=== PATIENT | male | born 2000 | race Caucasian/White ===

== ENCOUNTER 2018-06-22 13:16 | Outpatient (CLI) | payer OTHER ==
--- NOTE | 2018-06-22 17:11 | MRI ---
RIGHT WRIST MRI WITHOUT IV CONTRAST: History: 17-year-old male with history of traumatic tear of the triangular fibrocartilage S63.591A. Medial clarissa ed pain of wrist for one year, increasing with flexion. FINDINGS: Multiplanar, multisequence MRI examination of the right wrist was performed. There is no evidence for abnormal marrow signal. The triangular fibrocartilage complex appears intact. Scapholunate ligament region appears unremarkable. There is a slightly prominent pisiform recess noted just cranial to the pisiform bone. Visualized tendons appear unremarkable. IMPRESSION: Intact appearing triangular fibrocartilage complex. Slightly prominent pisiform recess. No other sign ificant acute internal derangement. POS: [facility]
--- NOTE | 2018-06-22 18:57 | MRI ---
LEFT WRIST MRI WITH AND WITHOUT IV CONTRAST: History: 17-year-old male with two palpable findings on the dorsal aspect of the wrist. M67.40 ganglion cysts. FINDINGS: There is a focal area of abnormal nodular signal just on the radial side of the dorsal aspect of the capitate third metacarpal joint. This nodular area measures approximately 0.4 cm in size. It is low s ignal on T1 and slightly high signal on STIR and T2 weighted sequences without associated abnormal co ntrast enhancement. This appears to be elevating the overlying extensor carpi radialis brevis tendon. There is some minimal marrow edema in the adjacent dorsal lateral base of the third metacarpal. This certainly could represent a carpal boss, developing os styloideum which is incompletely ossifi ed. This could certainly potentially account for the more distal palpable finding. I cannot demonstra te any significant abnormal MRI finding to account for the more proximal or cranial finding which is marked with a skin marker, as is the distal palpable finding. No evidence for other areas of abnormal marrow signal. The triangular fibrocartilage complex and scapholunate ligament regions appear unrema rkable. IMPRESSION: Focal area of nodular signal abnormality on the dorsal aspect of the wrist at the level of the capita te third metacarpal joint dorsally and slightly on the radial aspect. I favor this being a developing incompletely ossified os styloideum, potentially accounting for an associated carpal boss. Thi s appears to be minimally elevating the extensor carpi radialis brevis tendon. Minimal abnormal marro w signal involving the proximal radial aspect of the third metacarpal. Consideration for a follow up CT scan of the wrist might potentially give some additional information in this regard and confirm a developing os styloideum. This does not appear to be a typical ganglion cyst. POS: [facility]
== END 2018-06-22 13:17 | disposition home or self-care (01) ==
LOC: MRI 13:16
PROVIDERS: ATTEND Orthopaedic Surgery Hand Surgery
DX: S63.591A Other specified sprain of right wrist, initial encounter (principal); M67.40 Ganglion, unspecified site

== ENCOUNTER 2018-09-08 20:35 | Emergency (ER) | payer OTHER ==
--- NOTE | 2018-09-08 21:47 | RAD ---
FOUR VIEWS LEFT ELBOW: 09/08/18 HISTORY: Trauma and pain. AP, lateral and both oblique views left elbow obtained. Four views left elbow demonstrates no evidence of left elbow fractures, subluxations or bony lesions. IMPRESSION: Normal four views left elbow. POS: [facility]
--- NOTE | 2018-09-08 22:26 | RAD ---
LEFT FOREARM TWO VIEWS: 09/08/18 HISTORY: Injury, left forearm pain. FINDINGS/IMPRESSION: There is a minimally displaced fracture involving the distal left radial metaphysis. POS: [facility]
--- NOTE | 2018-09-08 22:27 | RAD ---
LEFT WRIST THREE VIEWS: 09/08/18 HISTORY: Injury, left wrist pain. FINDINGS/IMPRESSION: There is a minimally displaced fracture involving the left distal radial metaphysis. POS: [facility]
== END 2018-09-08 23:19 | disposition home or self-care (01) ==
LOC: ERS 20:35
DX: S52.502A Unspecified fracture of the lower end of left radius, initial encounter for closed fracture (principal); Z79.899 Other long term (current) drug therapy
CPT/HCPCS: 29125

== ENCOUNTER 2018-11-04 15:33 | Outpatient (CLI) | payer OTHER ==
--- NOTE | 2018-11-05 08:29 | MRI ---
MRI OF LEFT ELBOW PERFORMED WITHOUT CONTRAST ENHANCEMENT: Date: 11/04/18 HISTORY: Elbow injury while playing baseball last month. Patient has had pain ever since. FINDINGS: There is considerable motion artifact which significantly degrades the quality of this examination. T he biceps and triceps tendons are intact. The common extensor tendon, lateral collateral ligament, and LUCL all appear intact. There is marked edema change involving the proximal attachment of the anterior band of the ulnar collateral ligament. On these images, I feel it is most likely completely disrupted. The motion artifact is very signific ant. There is considerable edema change in the soft tissues. These changes extend to the common flexo r tendon. The muscle strain in this region appears to be related more to the flexor digitorum superfi cialis muscle. IMPRESSION: Significant motion artifact. This considerably degrades detail. Findings are very suspicious for a co mplete proximal ulnar collateral ligament injury. There are also edema changes associated with the co mmon flexor tendon and evidence of muscle strain involving the flexor digitorum superficialis. There also is felt to be some edema and muscle strain related to the flexor carpi ulnaris muscles. These ed jose changes are directly anterior to the ulnar nerve in this region. POS: [facility]
== END 2018-11-04 15:34 | disposition home or self-care (01) ==
LOC: SCSMRI 15:33
PROVIDERS: ATTEND Orthopaedic Surgery Hand Surgery
DX: S53.442A Ulnar collateral ligament sprain of left elbow, initial encounter (principal); M77.02 Medial epicondylitis, left elbow; S46.812A Strain of other muscles, fascia and tendons at shoulder and upper arm level, left arm, initial encounter